=== PATIENT | male | born 1940 | race Caucasian/White ===

== ENCOUNTER 2017-07-08 19:44 | Observation (INO) | payer MEDICARE, BC ==
[2017-07-08] VITALS (8 sets, daily range): BP systolic 110–140; BP diastolic 64–77; PULSE 57–72; RESP 18; TEMP 97.5; O2SAT 96–97
[~2017-07-08] VITALS: Ht 188 cm; Wt 95.1 kg
[~2017-07-08 19:44] MED LIST: LORT5TAB PO; TAB-TAB PO
--- NOTE | 2017-07-08 20:09 | PD ---
HPI Chief Complaint: Chest Pain Time Seen by Provider: 19:56 Travel History International Travel<30 days: No Contact w/Intl Traveler<30days: No Traveled to known affect area: No History of Present Illness HPI 76yo M with PMH of BPH here with c/o episode of chest pain today. Said he was walking and then stop to talk to neighbor and then started feeling dizzy, diaphoretic, and a pressure in left chest. Associated with sob. Pt said it lasted about 20 minutes and now all his symptoms had resolved. Denies any fever , cough, n/v, abdominal pain, focal weakness or numbness. Pt has never had this chest pain before. His father of heart attack at age 51. He is a former cig smoker. [facility] Social History Tobacco Use: No Allergies-Medications (Allergen,Severity, Reaction): Coded Allergies: codeine (Verified Allergy, Unknown, 07/08/17) No Known Allergies (Unverified Adverse Reaction, Unknown, 07/08/17) Reported Meds & Prescriptions Reported Meds & Active Scripts Active Reported Cialis (Tadalafil) 5 Mg Tab 5 Mg PO DAILY Do not exceed 1 dose/day. Centrum (Multiple Vitamins W/ Minerals) 1 Chew 1 Tab CHEW DAILY Rapaflo (Silodosin) 4 Mg Cap 4 Mg PO DAILY Review of Systems Except as stated in HPI: all other systems reviewed are Neg Physical Exam Narrative GENERAL: 76yo M not in distress. SKIN: Focused skin assessment warm/dry. HEAD: Atraumatic. Normocephalic. EYES: Pupils equal and round. No scleral icterus. No injection or drainage. ENT: No nasal bleeding or discharge. Mucous membranes pink and moist. NECK: Trachea midline. No JVD. CARDIOVASCULAR: Regular rate and rhythm. No murmur appreciated. RESPIRATORY: No accessory muscle use. Clear to auscultation. Breath sounds equal bilaterally. GASTROINTESTINAL: Abdomen soft, non-tender, nondistended. MUSCULOSKELETAL: No obvious deformities. No clubbing. No cyanosis. Trace bilateral lower extremity edema. NEUROLOGICAL: Awake and alert. No obvious cranial nerve deficits. Motor grossly within normal limits. Normal speech. PSYCHIATRIC: Appropriate mood and affect; insight and judgment normal. Data Data Last Documented VS Vital Signs Date Time Temp Pulse Resp B/P (MAP) Pulse Ox O2 Delivery O2 Flow Rate FiO2 07/08/17 20:53 72 18 140/74 (96) 97 Room Air 07/08/17 19:57 97.5 Orders Orders Basic Metabolic Panel (Bmp) (07/08/17 20:04) B-Type Natriuretic Peptide (07/08/17 20:04) Complete Blood Count With Diff (07/08/17 20:04) Magnesium (Mg) (07/08/17 20:04) Prothrombin Time / Inr (Pt) (07/08/17 20:04) Act Partial Throm Time (Ptt) (07/08/17 20:04) Troponin I (07/08/17 20:04) Chest, Single Ap (07/08/17 20:04) Aspirin (Aspirin) (07/08/17 20:15) Labs Laboratory Tests Test 07/08/17 20:04 White Blood Count 6.0 TH/MM3 Red Blood Count 4.74 MIL/MM3 Hemoglobin 15.4 GM/DL Hematocrit 44.6 % Mean Corpuscular Volume 94.1 FL Mean Corpuscular Hemoglobin 32.4 PG Mean Corpuscular Hemoglobin Concent 34.4 % Red Cell Distribution Width 13.1 % Platelet Count 211 TH/MM3 Mean Platelet Volume 9.3 FL Neutrophils (%) (Auto) 62.1 % Lymphocytes (%) (Auto) 24.6 % Monocytes (%) (Auto) 10.5 % Eosinophils (%) (Auto) 1.8 % Basophils (%) (Auto) 1.0 % Neutrophils # (Auto) 3.7 TH/MM3 Lymphocytes # (Auto) 1.5 TH/MM3 Monocytes # (Auto) 0.6 TH/MM3 Eosinophils # (Auto) 0.1 TH/MM3 Basophils # (Auto) 0.1 TH/MM3 CBC Comment DIFF FINAL Differential Comment Prothrombin Time 11.1 SEC Prothromb Time International Ratio 1.1 RATIO Activated Partial Thromboplast Time 24.2 SEC Blood Urea Nitrogen 18 MG/DL Creatinine 1.20 MG/DL Random Glucose 124 MG/DL Calcium Level 8.3 MG/DL Magnesium Level 2.5 MG/DL Sodium Level 142 MEQ/L Potassium Level 3.6 MEQ/L Chloride Level 107 MEQ/L Carbon Dioxide Level 27.3 MEQ/L Anion Gap 8 MEQ/L Estimat Glomerular Filtration Rate 59 ML/MIN Troponin I LESS THAN 0.02 NG/ML B-Type Natriuretic Peptide 22 PG/ML MDM Medical Decision Making Medical Screen Exam Complete: Yes Emergency Medical Condition: Yes Interpretation(s) EKG: Sinus bradycardia at 57bpm. PAC. No significant ST segment elevation or depression. TWI III. Differential Diagnosis ACS vs. GERD vs. musculoskeletal pain Narrative Course 76yo M with episode of chest pain that is concerning for ACS. Pt is currently chest pain free. Pt given aspirin. Labs reviewed, no leukocytosis. Troponin negative. BNP normal. CXR showed minimal peripheral changes laterally right lung. Pt has no fever, cough or sob now. Last stress test 10 years ago. Discuss[address] with Dr. Ybarra and accepted to her service for chest pain center. Diagnosis Primary Impression: Chest pain Qualified Codes: R07.9 - Chest pain, unspecified Admitting Information Admitting Physician Requests: Suzie Gentile DO Jul 08, 2017 20:09
[2017-07-08] MEDS ORDERED: RAPA4CAP PO (20:14)
[2017-07-08] MEDS ORDERED: CIAL5TAB PO (20:14)
[2017-07-08] MEDS ORDERED: CENTCHW4 CHEW (20:14)
[2017-07-08 20:15] LABS: AUTOMATED NEUTROPHIL # 3.7 TH/MM3 (1.8-7.7); BASOPHIL # 0.1 TH/MM3 (0-0.2); EOSINOPHIL # 0.1 TH/MM3 (0-0.4); EOSINOPHIL % 1.8 % (0.0-4.0); HEMATOCRIT 44.6 % (39.0-51.0); HEMOGLOBIN 15.4 GM/DL (13.0-17.0); LYMPH % 24.6 % (9.0-44.0); LYMPHOCYTE # 1.5 TH/MM3 (1.0-4.8); MEAN CELL VOLUME 94.1 FL (80.0-100.0); MEAN CORPUSCULAR HEMOGLOBIN 32.4 PG (27.0-34.0); MEAN CORPUSCULAR HGB CONC 34.4 % (32.0-36.0); MEAN PLATELET VOLUME 9.3 FL (7.0-11.0); MONO % 10.5 % (0.0-8.0); MONOCYTE # 0.6 TH/MM3 (0-0.9); NEUT % 62.1 % (16.0-70.0); PLATELET COUNT 211 TH/MM3 (150-450); RED BLOOD COUNT 4.74 MIL/MM3 (4.50-5.90); RED CELL DISTRIBUTION WIDTH 13.1 % (11.6-17.2)
[2017-07-08] MEDS ORDERED: ASPIRIN 325 MG TAB PO ONE (20:15)
[2017-07-08 20:30] LABS: INTERNATIONAL NORMALIZED RATIO 1.1 RATIO; PROTHROMBIN TIME - PATIENT 11.1 SEC (9.8-11.6)
[2017-07-08 20:32] LABS: CHLORIDE 107 MEQ/L (98-107); SODIUM (NA) 142 MEQ/L (136-145)
[2017-07-08 20:34] LABS: CALCIUM 8.3 MG/DL (8.5-10.1)
[2017-07-08 20:35] LABS: BICARBONATE 27.3 MEQ/L (21.0-32.0); BLOOD UREA NITROGEN 18 MG/DL (7-18); GLUCOSE,RANDOM 124 MG/DL (74-106); MAGNESIUM 2.5 MG/DL (1.5-2.5)
[2017-07-08 20:38] LABS: GLOMERULAR FILTRATION RATE 59 ML/MIN (>89)
[2017-07-08 20:43] LABS: TROPONIN I LESS THAN 0.02 NG/ML (0.02-0.05)
--- NOTE | 2017-07-08 21:33 | RADRPT ---
EXAM DATE/TIME: 07/08/2017 20:43 [facility] COMPARISON: No previous studies available for comparison. INDICATIONS : Chest pain, shortness of breath. MEDICAL HISTORY : None. SURGICAL HISTORY : None. ENCOUNTER: Initial ACUITY: 1 day PAIN SCORE: 8/10 LOCATION: Bilateral chest FINDINGS: Minimal probable changes laterally right lung. Right lung clear. Mild compensated cardiomegaly. Th e portion of the bony skeleton visualized is unremarkable. CONCLUSION: Minimal peripheral changes laterally right lung Rafita Collins MD FACR on July 08, 2017 at 21:30 Board Certified Radiologist. This report was verified electronically.
[2017-07-08] MEDS ORDERED: SODIUM CHLORIDE 0.9% FLUSH 10 ML FLUSH IV FLUSH PRN (22:15)
[2017-07-09] VITALS (8 sets, daily range): BP systolic 121–142; BP diastolic 64–79; PULSE 54–76; RESP 20; TEMP 96.6–97.6; O2SAT 95–99
[2017-07-09 00:07] LABS: TROPONIN I LESS THAN 0.02 NG/ML (0.02-0.05)
[2017-07-09 03:13] LABS: TROPONIN I LESS THAN 0.02 NG/ML (0.02-0.05)
[2017-07-09] MEDS ORDERED: SODIUM CHLORIDE 0.9% FLUSH 10 ML FLUSH IV FLUSH SCH (09:00)
--- NOTE | 2017-07-09 13:17 | HHI.HP ---
[facility] Katrin Lyon MD Admission Diagnosis Chest pain Diagnoses: Chief Complaint: chest pain , gen weakness Travel History International Travel<30 Days: No Contact w/Intl Traveler <30 Da: No Traveled to Known Affected Are: No History of Present Illness 76yo M with PMH of BPH came to the ED with c/o episode of chest pain/pressure, left sided. Said he was walking and then stopped to talk to his neighbor and then started feeling dizzy, diaphoretic, and experienced pressure like in left chest. Associated with sob, diaphoresis and nausea. No radiation. Pt said it lasted about 20 minutes and by the time he arrived to ED the symptoms had resolved. Remained chest pain /pressure free since then. Patient also says he fels generalized weakness but now he is back at his baseline. He is now complaining of some headache as he dod not eat yet. Denies any fever, cough, n/v , abdominal pain, focal weakness or numbness. Pt has never had this chest pain before. His father of heart attack at age 51. He is a former cig smoker. Review of Systems Except as stated in HPI: all other systems reviewed are Neg Past Family Social History Past Medical History History of BPH Past Surgical History Cataract surgery Reported Medications Reported Meds & Active Scripts Active Reported Cialis (Tadalafil) 5 Mg Tab 5 Mg PO DAILY Do not exceed 1 dose/day. Centrum (Multiple Vitamins W/ Minerals) 1 Chew 1 Tab CHEW DAILY Rapaflo (Silodosin) 4 Mg Cap 4 Mg PO DAILY Allergies: Coded Allergies: No Known Allergies (Unverified Allergy, Unknown, 07/08/17) codeine (Verified Allergy, Unknown, 07/08/17) Family History Father at the age of 51 [address] Mother with history of breast cancer Social History No current tobacco use, quit smoking a long time ago, former cigarette user No illicit drug use or alcohol use Physical Exam Vital Signs Vital Signs Date Time Temp Pulse Resp B/P (MAP) Pulse Ox O2 Delivery O2 Flow Rate FiO2 07/09/17 07:50 97.6 76 20 142/79 (100) 98 3/25/18 07:37 95 07/09/17 04:24 63 07/09/17 04:00 96.6 65 20 121/64 (83) 96 07/09/17 00:50 99 21 07/09/17 00:34 97.5 60 20 138/69 (92) 95 07/08/17 23:45 57 07/08/17 23:45 57 07/08/17 23:27 76 18 110/77 (88) 97 07/08/17 22:23 70 18 132/75 (94) 96 Room Air 07/08/17 21:53 68 18 134/75 (94) 97 Room Air 07/08/17 21:23 68 18 119/71 (87) 96 Room Air 07/08/17 20:53 72 18 140/74 (96) 97 Room Air 07/08/17 20:23 60 18 115/68 (84) 97 Aerosol Mask 07/08/17 19:57 62 18 96 Room Air 07/08/17 19:57 97.5 64 18 129/64 (85) 96 Physical Exam GENERAL: This is a well-nourished, well-developed patient, in no apparent distress. SKIN: No rashes, ecchymoses or lesions. Cool and dry. HEAD: Atraumatic. Normocephalic. No temporal or scalp tenderness. EYES: Pupils equal round and reactive. Extraocular motions intact. No scleral icterus. No injection or drainage. ENT: Nose without bleeding, purulent drainage or septal hematoma. Throat without erythema, tonsillar hypertrophy or exudate. Uvula midline. Airway patent. NECK: Trachea midline. No JVD or lymphadenopathy. Supple, nontender, no meningeal signs. CARDIOVASCULAR: Regular rate and rhythm without murmurs, gallops, or rubs. RESPIRATORY: Clear to auscultation. Breath sounds equal bilaterally. No wheezes , rales, or rhonchi. GASTROINTESTINAL: Abdomen soft, non-tender, nondistended. No hepato-splenomegaly , or palpable masses. No guarding. MUSCULOSKELETAL: Extremities without clubbing, cyanosis, or edema. No joint tenderness, effusion, or edema noted. No calf tenderness. Negative Homans sign bilaterally. NEUROLOGICAL: Awake and alert. Cranial nerves II through XII intact. Motor and sensory grossly within normal limits. Five out of 5 muscle strength in all muscle groups. Normal speech. Laboratory Laboratory Tests Test 07/08/17 20:04 07/08/17 23:10 07/09/17 01:00 White Blood Count 6.0 Red Blood Count 4.74 Hemoglobin 15.4 Hematocrit 44.6 Mean Corpuscular Volume 94.1 Mean Corpuscular Hemoglobin 32.4 Mean Corpuscular Hemoglobin Concent 34.4 Red Cell Distribution Width 13.1 Platelet Count 211 Mean Platelet Volume 9.3 Neutrophils (%) (Auto) 62.1 Lymphocytes (%) (Auto) 24.6 Monocytes (%) (Auto) 10.5 Eosinophils (%) (Auto) 1.8 Basophils (%) (Auto) 1.0 Neutrophils # (Auto) 3.7 Lymphocytes # (Auto) 1.5 Monocytes # (Auto) 0.6 Eosinophils # (Auto) 0.1 Basophils # (Auto) 0.1 CBC Comment DIFF FINAL Differential Comment Prothrombin Time 11.1 Prothromb Time International Ratio 1.1 Activated Partial Thromboplast Time 24.2 Blood Urea Nitrogen 18 Creatinine 1.20 Random Glucose 124 Calcium Level 8.3 Magnesium Level 2.5 Sodium Level 142 Potassium Level 3.6 Chloride Level 107 Carbon Dioxide Level 27.3 Anion Gap 8 Estimat Glomerular Filtration Rate 59 Troponin I LESS THAN 0.02 LESS THAN 0.02 LESS THAN 0.02 B-Type Natriuretic Peptide 22 Total Creatine Kinase 52 47 Result Diagram: 07/08/17200307/08/172003 Caprini VTE Risk Assessment Caprini VTE Risk Assessment: Mod/High Risk (score >= 2) Caprini Risk Assessment Model Point Value = 1 Point Value = 2 Point Value = 3 Point Value = 5 Age 41-60 Minor surgery BMI > 25 kg/m2 Swollen legs Varicose veins or History of unexplained or recurrent spontaneous Oral contraceptives or hormone replacement Sepsis (< 1 month) Serious lung disease, including pneumonia (< 1 month) Abnormal pulmonary function Acute myocardial infarction Congestive heart failure (< 1 month) History of inflammatory bowel disease Medical patient at bed rest Age 61-74 Arthroscopic surgery Major open surgery (> 45 min) Laparoscopic surgery (> 45 min) Malignancy Confined to bed (> 72 hours) Immobilizing plaster cast Central venous access Age >= 75 History of VTE Family history of VTE Factor V Leiden Prothrombin [id number] Lupus anticoagulant Anticardiolipin antibodies Elevated serum homocysteine Heparin-induced thrombocytopenia Other congenital or acquired thrombophilia Stroke (< 1 month) Elective arthroplasty Hip, pelvis, or leg fracture Acute spinal cord injury (< 1 month) Prophylaxis Regimen Total Risk Factor Score Risk Level Prophylaxis Regimen 0-1 Low Early ambulation 2 Moderate Order ONE of the following: *Sequential Compression Device (SCD) *Heparin 5000 units SQ BID 3-4 Higher Order ONE of the following medications: *Heparin 5000 units SQ TID *Enoxaparin/Lovenox 40 mg SQ daily (WT < 150 kg, CrCl > 30 mL/min) *Enoxaparin/Lovenox 30 mg SQ daily (WT < 150 kg, CrCl > 10-29 mL/min) *Enoxaparin/Lovenox 30 mg SQ BID (WT < 150 kg, CrCl > 30 mL/min) AND/OR *Sequential Compression Device (SCD) 5 or more Highest Order ONE of the following medications: *Heparin 5000 units SQ TID (Preferred with Epidurals) *Enoxaparin/Lovenox 40 mg SQ daily (WT < 150 kg, CrCl > 30 mL/min) *Enoxaparin/Lovenox 30 mg SQ daily (WT < 150 kg, CrCl > 10-29 mL/min) *Enoxaparin/Lovenox 30 mg SQ BID (WT < 150 kg, CrCl > 30 mL/min) AND *Sequential Compression Device (SCD) Assessment and Plan Assessment and Plan 76yo M with episode of chest pain that is concerning for ACS. Received aspirin. Troponin negative x3 . BNP normal. EKG: Sinus bradycardia at 57bpm. PAC. No significant ST segment elevation or depression. TWI III. CXR showed minimal peripheral changes laterally right lung. Last stress test 10 years ago and was normal. Lexiscan is normal Patient improved no chest pain since admission Hold cialis. Patient last took cialis on Monday Restart home meds as appropriate DVT prophylaxis SCDs/teds/Lovenox Stress test is normal the patient was discharged later today. Discharge plan: Discharge home in stable condition to follow-up with PCP and consultants as outpatient Diet heart healthy diet Activity ad melvi. as tolerated Medications per med reconciliation Discussed Condition With Patient, nurse, family at bedside Aliya Núñez MD Jul 09, 2017 13:17
--- NOTE | 2017-07-09 13:19 | HHI.DCPOC ---
Discharge Care Plan Goals to Promote Your Health * To prevent worsening of your condition and complications * To maintain your health at the optimal level Directions to Meet Your Goals Take your medications as prescribed Follow your dietary instruction Follow activity as directed Keep your appointments as scheduled Take your immunizations and boosters as scheduled If your symptoms worsen call your PCP, if no PCP go to Urgent Care Center or Emergency Room Smoking is Dangerous to Your Health. Avoid second hand smoke Call the 24-hour hour crisis hotline for domestic abuse at Aliya Núñez MD Jul 09, 2017 13:19
[2017-07-09] MEDS ORDERED: REGADENOSON INJ 0.4 MG/5 ML SYR IV ONE (13:30)
--- NOTE | 2017-07-09 14:33 | RADRPT ---
EXAM DATE/TIME: 07/09/2017 13:10 [facility] COMPARISON: No previous studies available for comparison. INDICATIONS : Chest pain. Angina. DOSE: 26.5 mCi Tc99m Myoview at stress. 8.2 mCi Tc99m Myoview at rest. 0.4 mg Lexiscan STRESS SYMPTOMS: Short of breath. EJECTION FRACTION: 69% MEDICAL HISTORY : Former smoker. SURGICAL HISTORY : Inguinal hernia repair. ENCOUNTER: Initial ACUITY: 1 day PAIN SCALE: 2/10 LOCATION: Bilateral chest TECHNIQUE: The patient underwent pharmacologic stress with infusion of prescribed dose. Continuous ECG tracing was monitored during stress. Gated SPECT imaging was performed after stress and conventional SPECT i maging was performed at rest. The examination was performed on a SPECT/CT scanner, both attenuation and non-corrected datasets were reviewed. FINDINGS: DISTRIBUTION: The maximum perfused segment at stress is in the septal wall. PERFUSION STUDY: The pattern of perfusion at stress is within normal limits. GATED STUDY: There is intact wall motion and thickening without hypokinetic or dyskinetic segments. CONCLUSION: No areas of ischemia are seen. RISK CATEGORY: Low (<1% Annual Mortality Rate) Jonathan Reyes MD on July 09, 2017 at 14:29 Board Certified Radiologist. This report was verified electronically.
--- NOTE | 2017-07-09 17:53 | TR ---
Date Performed: 07/09/2017 Time Performed: 13:41:06 DOCTOR: Xavier Bobo DRUG LIST: CLINICAL HISTORY: REASON FOR TEST: REASON FOR ENDING: OBSERVATION: CONCLUSION: Lexiscan stress test was performed under standard four minute protocol. Radionuclide was injected one minute prior to ending the test. Non specific ST T changes were present but non cosmo gnostic of ischemia. Nuclear imaging and interpretation are pending. COMMENTS:
--- NOTE | 2017-07-09 19:51 | EKG ---
Date Performed: 07/09/2017 Time Performed: 00:53:02 PTAGE: 76 years EKG: SINUS BRADYCARDIA Since the previous tracing, no significant change noted BORDERLINE ECG PREVIOUS TRACING : 07/08/2017 22.37 DOCTOR: Thor Snyder Interpretating Date/Time 07/09/2017 19:48:39
--- NOTE | 2017-07-09 19:51 | EKG ---
Date Performed: 07/08/2017 Time Performed: 22:37:46 PTAGE: 76 years EKG: Sinus rhythm Since the previous tracing, no significant change noted NORMAL ECG PREVIOUS TRACING : 07/08/2017 19.50 DOCTOR: Thor Snyder Interpretating Date/Time 07/09/2017 19:48:30
--- NOTE | 2017-07-09 19:51 | EKG ---
Date Performed: 07/08/2017 Time Performed: 19:50:25 PTAGE: 76 years EKG: SINUS BRADYCARDIA WITH OCCASIONAL SUPRAVENTRICULAR PREMATURE COMPLEXES MODERATE INTRAVENTRI CULAR CONDUCTION DELAY Since the previous tracing, no significant change noted BORDERLINE ECG PREVIOUS TRACING : 10/05/2009 08.39 DOCTOR: Thor Snyder Interpretating Date/Time 07/09/2017 19:48:22
[2017-07-10] MEDS ORDERED: PNEUMOCOCCAL POLYVALENT INJ 25 MCG/0.5 ML SYR IM ONE (10:00)
== END 2017-07-09 17:04 | disposition home or self-care (01) ==
LOC: PHED 19:44 → PHEDA 22:14 → PH3B 23:20
PROVIDERS: ADMIT Hospitalist; ATTEND Hospitalist
DX: R07.9 Chest pain, unspecified (principal); R00.1 Bradycardia, unspecified; R53.1 Weakness; R42 Dizziness and giddiness; R61 Generalized hyperhidrosis; R06.02 Shortness of breath; R11.0 Nausea; R51 Headache; N40.0 Benign prostatic hyperplasia without lower urinary tract symptoms; Z87.891 Personal history of nicotine dependence; Z82.49 Family history of ischemic heart disease and other diseases of the circulatory system
CPT/HCPCS: 71045; 78452; 80048; 82550; 83735; 83880; 84484; 85025; 85610; 85730; 93005; 93017; 99285; A9502; G0378; J2785